=== PATIENT | male | born 1955 | race Caucasian/White ===

== ENCOUNTER 2020-10-31 11:47 | Inpatient (IN) | payer MEDICARE, MEDICAID ==
[~2020-10-31] VITALS: Ht 180.3 cm; Wt 86.6 kg
[2020-10-31] MEDS ORDERED: LORazepam 1 MG TABLET PO PRN (15:30)
[2020-10-31] MEDS ORDERED: HALOPERIDOL 5 MG TABLET PO PRN (15:30)
[2020-10-31] MEDS ORDERED: ZOLPIDEM TARTRATE 10 MG TABLET PO PRN (15:30)
[2020-10-31 17:21] VITALS: BP 146/89
[2020-10-31] MEDS ORDERED: CloNIDine HCL 0.1 MG TABLET PO PRN (17:45)
[2020-10-31] MEDS ORDERED: BENZOCAINE/MENTHOL LOZENGE PO PRN (17:45)
[2020-10-31] MEDS ORDERED: OMEPRAZOLE 20 MG CAPSULE PO PRN (17:45)
[2020-10-31] MEDS ORDERED: MAGNESIUM HYDROXIDE SUSPENSION 30 ML UDCUP PO PRN (17:45)
[2020-10-31] MEDS ORDERED: PETROLATUM,WHITE 28 GM JELLY TP PRN (17:45)
[2020-10-31] MEDS ORDERED: ACETAMINOPHEN 325 MG TABLET PO PRN (17:45)
[2020-10-31] MEDS ORDERED: ALBUTEROL SULFATE HFA 90 MCG/PUFF 8 GM INHALER IH PRN (17:45)
[2020-10-31] MEDS ORDERED: DOCUSATE SODIUM 100 MG CAPSULE PO PRN (17:45)
[2020-10-31] MEDS ORDERED: IBUPROFEN 600 MG TABLET PO PRN (17:45)
[2020-10-31] MEDS ORDERED: LOPERAMIDE HCL 2 MG CAPSULE PO PRN (17:45)
[2020-10-31] MEDS ORDERED: MAG HYDROX/AL HYDROX/SIMETH ES 30 ML SUSPENSION UDCUP PO PRN (17:45)
[2020-10-31] MEDS ORDERED: PNEUMOCOCCAL VACCINE POLYVALENT 0.5 ML VIAL [PPSV23] IM ONE (17:45)
[2020-10-31] MEDS ORDERED: INFLUENZA VIRUS VACCINE QVS 2020-21 (6MO+)/PF 60 MCG/0.5 ML SYRINGE IM ONE (17:45)
[2020-10-31] MEDS ORDERED: BACITRACIN 28 GM OINTMENT TP PRN (17:45)
[2020-10-31] MEDS ORDERED: ONDANSETRON HCL 4 MG TABLET PO PRN (17:45)
[2020-11-01 00:10] VITALS: BP 123/63
[2020-11-01] MEDS ORDERED: LISINOPRIL 20 MG TABLET PO SCH (09:00)
[2020-11-01] MEDS ORDERED: NICOTINE 21 MG/24 HOUR PATCH TD SCH (09:00)
== END 2020-11-01 00:15 | disposition admitted as inpatient to this hospital (09) | DRG 885 ==
LOC: B2X 15:30
PROVIDERS: ADMIT Psychiatry & Neurology Psychiatry; ATTEND Psychiatry & Neurology Psychiatry
DX: F20.0 Paranoid schizophrenia (principal); Z20.822 Contact with and (suspected) exposure to COVID-19
CPT/HCPCS: 87081; Z7610

== ENCOUNTER 2020-12-17 11:22 | Inpatient (IN) | payer MEDICARE, MEDICAID ==
[~2020-12-17] VITALS: Ht 180.3 cm; Wt 90.7 kg
[~2020-12-17 11:22] MED LIST: CITA-144 PO; QUET200T PO; QUET300T2 PO
[2020-12-17] MEDS ORDERED: MAGNESIUM HYDROXIDE SUSPENSION 30 ML UDCUP PO PRN (11:30)
[2020-12-17] MEDS ORDERED: GuaiFENesin/D-METHORPHAN [SUGAR-FREE] 200-20MG/10 ML SYRUP UDCUP PO PRN (11:30)
[2020-12-17] MEDS ORDERED: ZOLPIDEM TARTRATE 10 MG TABLET PO PRN (11:30)
[2020-12-17] MEDS ORDERED: MAG HYDROX/AL HYDROX/SIMETH ES 30 ML SUSPENSION UDCUP PO PRN (11:30)
[2020-12-17] MEDS ORDERED: TUBERCULIN, PURIFIED PROTEIN DERIVATIVE 5 TU/0.1 ML SYRINGE ID ONE (11:30)
[2020-12-17] MEDS ORDERED: LOPERAMIDE HCL 2 MG CAPSULE PO PRN (11:30)
[2020-12-17] MEDS ORDERED: PROMETHAZINE HCL 25 MG TABLET PO PRN (11:30)
[2020-12-17] MEDS ORDERED: HydrOXYzine PAMOATE 50 MG CAPSULE PO PRN (11:30)
[2020-12-17 14:48] VITALS: BP 151/91
[2020-12-17 16:20] VITALS: BP 127/76
[2020-12-17] MEDS: THIAMINE 100 MG TABLET PO SCH (16:54)
[2020-12-17] MEDS: MELATONIN 5 MG TABLET PO SCH (20:27)
[2020-12-17] MEDS ORDERED: QUEtiapine FUMARATE 300 MG TABLET PO SCH (21:00)
[2020-12-18 06:51] VITALS: BP 131/89
[2020-12-18 08:10] LABS: BASOPHILS % (AUTO) 1.3 % (0.0-2.0); EOSINOPHILS % (AUTO) 4.4 % (1.0-6.0); HEMATOCRIT 41.2 % (41-53); HEMOGLOBIN 13.8 g/dL (13.5-17.5); LYMPHOCYTES # (AUTO) 1.4 K/uL (1.0-4.8); LYMPHOCYTES % (AUTO) 20.4 % (22.0-44.0); MEAN CORPUSCULAR HEMOGLOBIN 31.5 pg (26.0-34.0); MEAN CORPUSCULAR HGB CONC 33.5 G/dL (31.0-37.0); MEAN CORPUSCULAR VOLUME 94 fL (80-100); MONOCYTES # (AUTO) 0.6 K/uL (0.1-1.0); MONOCYTES % (AUTO) 9.1 % (2.0-9.0); NEUTROPHILS # (AUTO) 4.6 K/uL (1.8-7.7); NEUTROPHILS % (AUTO) 64.8 % (40.0-70.0); PLATELET COUNT (AUTO) 236 K/uL (150-450); RED BLOOD CELL COUNT(AUTO) 4.37 MIL/uL (4.50-5.90); RED CELL DISTRIBUTION WIDTH 16.1 % (11.5-14.5)
[2020-12-18 08:12] VITALS: BP 113/67
[2020-12-18 08:38] LABS: HEMOGLOBIN A1C 4.9 % (3.8-5.6)
[2020-12-18 08:46] LABS: ALANINE AMINOTRANSFERASE 20 U/L (12-78); ALBUMIN 3.4 g/dL (3.4-5.0); ALKALINE PHOSPHATASE 87 U/L (46-116); ANION GAP 8 mmol/L (8-16); ASPARTATE AMINOTRANSFERASE 12 U/L (15-37); BILIRUBIN,TOTAL 0.4 mg/dL (0.1-1.0); CALCIUM, TOTAL 9.3 mg/dL (8.8-10.5); CARBON DIOXIDE 28 mmol/L (22-29); CHLORIDE 106 mmol/L (98-107); CHOL/HDL RATIO 2.7 (4.2-7.3); CHOLESTEROL 149 mg/dL (131-200); CREATININE 1.07 mg/dL (0.60-1.30); FREE T4 (FREE THYROXINE) 1.04 ng/dL (0.76-1.46); GLOMERULAR FILTR. RATE CALC > 60 mL/min (>60); GLUCOSE,RANDOM 78 mg/dL (70-110); HDL CHOLESTEROL 56 mg/dL (40-60); LDL CHOL (CALC.) 77 mg/dL (0-130); POTASSIUM 4.3 mmol/L (3.5-5.1); SODIUM SERUM 142 mmol/L (136-145); THYROID STIMULATING HORMONE 1.49 uIU/mL (0.36-3.74); TOTAL PROTEIN, SERUM 6.9 g/dL (6.4-8.2); TRIGLYCERIDES 82 mg/dL (15-150); UREA NITROGEN, BLOOD 14 mg/dL (7-18)
[2020-12-18] MEDS: OMEGA-3/DHA/EPA/FISH OIL 1,000 MG CAPSULE PO SCH (08:57)
[2020-12-18] MEDS: MULTIVITAMINS WITH MINERALS, THERAPEUTIC TABLET PO SCH (08:57)
[2020-12-18] MEDS: THIAMINE 100 MG TABLET PO SCH ×2 (08:57→16:56)
[2020-12-18] MEDS: FOLIC ACID 1 MG TABLET PO SCH (08:57)
[2020-12-18] MEDS: QUEtiapine FUMARATE 200 MG TABLET PO SCH (08:58)
[2020-12-18] MEDS: NALTREXONE HCL 50 MG TABLET PO SCH (08:58)
[2020-12-18] MEDS ORDERED: CITALOPRAM HYDROBROMIDE 20 MG TABLET PO SCH (09:00)
[2020-12-18 16:24] VITALS: BP 106/66
[2020-12-18] MEDS ORDERED: QUEtiapine FUMARATE 200 MG TABLET PO SCH (21:00)
[2020-12-18] MEDS: MELATONIN 5 MG TABLET PO SCH (21:20)
[2020-12-18 21:33] VITALS: BP 106/66
[2020-12-18 21:36] VITALS: BP 106/66
[2020-12-19 06:15] VITALS: BP 103/60
[2020-12-19 08:24] VITALS: BP 104/62
[2020-12-19] MEDS ORDERED: DULoxetine HCL 20 MG CAPSULE PO SCH (09:00)
[2020-12-19] MEDS: QUEtiapine FUMARATE 100 MG TABLET PO PRN (09:07)
[2020-12-19] MEDS: NALTREXONE HCL 50 MG TABLET PO SCH (09:07)
[2020-12-19] MEDS: THIAMINE 100 MG TABLET PO SCH ×3 (09:07→16:39)
[2020-12-19] MEDS: MULTIVITAMINS WITH MINERALS, THERAPEUTIC TABLET PO SCH (09:07)
[2020-12-19] MEDS: OMEGA-3/DHA/EPA/FISH OIL 1,000 MG CAPSULE PO SCH (09:07)
[2020-12-19] MEDS: FOLIC ACID 1 MG TABLET PO SCH (09:07)
[2020-12-19] MEDS: QUEtiapine FUMARATE 200 MG TABLET PO SCH (09:11)
[2020-12-19 09:17] LABS: APPEARANCE,URINE CLEAR (CLEAR); BILIRUBIN,URINE NEGATIVE (NEGATIVE); GLUCOSE, URINE (UA) NEGATIVE (NEGATIVE); KETONES,URINE NEGATIVE (NEGATIVE); LEUKOCYTE ESTERASE ,URINE NEGATIVE (NEGATIVE); NITRATE,URINE NEGATIVE (NEGATIVE); OCCULT BLOOD,URINE NEGATIVE (NEGATIVE); PROTEIN,URINE NEGATIVE (NEGATIVE); UROBILINOGEN,URINE 0.2 mg/dL (<=1.0)
[2020-12-19 09:21] LABS: AMPHET/METH SCREEN,URINE NEGATIVE (NEGATIVE); BARBITURATE SCREEN, URINE NEGATIVE (NEGATIVE); BENZODIAZEPINES SCREEN,URINE NEGATIVE (NEGATIVE); CANNABINOID SCREEN,URINE NEGATIVE (NEGATIVE); COCAINE SCREEN,URINE NEGATIVE (NEGATIVE); METHADONE SCREEN, URINE NEGATIVE (NEGATIVE); OPIATE SCREEN,URINE NEGATIVE (NEGATIVE)
[2020-12-19 09:31] LABS: PHENCYCLIDINE SCREEN,URINE NEGATIVE (NEGATIVE)
[2020-12-19] MEDS: LORazepam 2 MG TABLET PO PRN (13:38)
[2020-12-19 16:12] VITALS: BP 117/69
[2020-12-19] MEDS: MELATONIN 5 MG TABLET PO SCH (20:13)
[2020-12-19] MEDS: QUEtiapine FUMARATE 300 MG TABLET PO SCH (20:14)
[2020-12-20 06:18] VITALS: BP 104/60
[2020-12-20] MEDS: THIAMINE 100 MG TABLET PO SCH ×2 (08:26→16:30)
[2020-12-20] MEDS: QUEtiapine FUMARATE 200 MG TABLET PO SCH (08:26)
[2020-12-20] MEDS: MULTIVITAMINS WITH MINERALS, THERAPEUTIC TABLET PO SCH (08:26)
[2020-12-20] MEDS: NALTREXONE HCL 50 MG TABLET PO SCH (08:26)
[2020-12-20] MEDS: OMEGA-3/DHA/EPA/FISH OIL 1,000 MG CAPSULE PO SCH (08:26)
[2020-12-20] MEDS: FOLIC ACID 1 MG TABLET PO SCH (08:26)
[2020-12-20] MEDS: DULoxetine HCL 30 MG CAPSULE PO SCH (08:27)
[2020-12-20 08:54] VITALS: BP 117/78
[2020-12-20] MEDS: LORazepam 2 MG TABLET PO PRN (13:08)
[2020-12-20 16:20] VITALS: BP 100/67
[2020-12-20] MEDS: QUEtiapine FUMARATE 300 MG TABLET PO SCH (20:34)
[2020-12-20] MEDS: MELATONIN 5 MG TABLET PO SCH (20:34)
[2020-12-21 06:24] VITALS: BP 129/79
[2020-12-21 08:12] VITALS: BP 102/60
[2020-12-21 08:17] LABS: BASOPHILS % (AUTO) 1.3 % (0.0-2.0); EOSINOPHILS % (AUTO) 4.2 % (1.0-6.0); HEMATOCRIT 43.9 % (41-53); HEMOGLOBIN 14.6 g/dL (13.5-17.5); LYMPHOCYTES # (AUTO) 1.7 K/uL (1.0-4.8); LYMPHOCYTES % (AUTO) 21.3 % (22.0-44.0); MEAN CORPUSCULAR HEMOGLOBIN 31.7 pg (26.0-34.0); MEAN CORPUSCULAR HGB CONC 33.2 G/dL (31.0-37.0); MEAN CORPUSCULAR VOLUME 96 fL (80-100); MONOCYTES # (AUTO) 0.8 K/uL (0.1-1.0); NEUTROPHILS % (AUTO) 63.2 % (40.0-70.0); PLATELET COUNT (AUTO) 246 K/uL (150-450); RED CELL DISTRIBUTION WIDTH 16.5 % (11.5-14.5)
[2020-12-21] MEDS: QUEtiapine FUMARATE 100 MG TABLET PO PRN (08:44)
[2020-12-21] MEDS: MULTIVITAMINS WITH MINERALS, THERAPEUTIC TABLET PO SCH (08:44)
[2020-12-21] MEDS: THIAMINE 100 MG TABLET PO SCH ×2 (08:44→18:08)
[2020-12-21] MEDS: FOLIC ACID 1 MG TABLET PO SCH (08:44)
[2020-12-21] MEDS: OMEGA-3/DHA/EPA/FISH OIL 1,000 MG CAPSULE PO SCH (08:44)
[2020-12-21] MEDS: DULoxetine HCL 30 MG CAPSULE PO SCH (08:44)
[2020-12-21] MEDS: NALTREXONE HCL 50 MG TABLET PO SCH (08:45)
[2020-12-21] MEDS: QUEtiapine FUMARATE 200 MG TABLET PO SCH (08:53)
[2020-12-21] MEDS ORDERED: CloZAPine 25 MG TABLET PO SCH (09:00)
[2020-12-21] MEDS: LORazepam 2 MG TABLET PO PRN (14:37)
[2020-12-21 16:18] VITALS: BP 128/74
[2020-12-21] MEDS: QUEtiapine FUMARATE 300 MG TABLET PO SCH (20:39)
[2020-12-21] MEDS: MELATONIN 5 MG TABLET PO SCH (20:39)
[2020-12-22 06:15] VITALS: BP 103/60
[2020-12-22 07:46] LABS: COVID AG,FIA SOURCE NASOPHARYNGEAL
[2020-12-22 08:34] VITALS: BP 103/52
[2020-12-22] MEDS ORDERED: CloZAPine 25 MG TABLET PO SCH ×2 (09:00→21:00)
[2020-12-22] MEDS: FOLIC ACID 1 MG TABLET PO SCH (09:28)
[2020-12-22] MEDS: THIAMINE 100 MG TABLET PO SCH ×2 (09:28→17:01)
[2020-12-22] MEDS: OMEGA-3/DHA/EPA/FISH OIL 1,000 MG CAPSULE PO SCH (09:28)
[2020-12-22] MEDS: MULTIVITAMINS WITH MINERALS, THERAPEUTIC TABLET PO SCH (09:28)
[2020-12-22] MEDS: DULoxetine HCL 30 MG CAPSULE PO SCH (09:28)
[2020-12-22] MEDS: QUEtiapine FUMARATE 200 MG TABLET PO SCH (09:28)
[2020-12-22] MEDS: NALTREXONE HCL 50 MG TABLET PO SCH (09:29)
[2020-12-22 16:09] VITALS: BP 111/68
[2020-12-22] MEDS: LORazepam 2 MG TABLET PO PRN (17:01)
[2020-12-22] MEDS: QUEtiapine FUMARATE 300 MG TABLET PO SCH (20:44)
[2020-12-22] MEDS: MELATONIN 5 MG TABLET PO SCH (20:45)
[2020-12-23 00:15] VITALS: BP 127/75
[2020-12-23 08:18] VITALS: BP 105/62
[2020-12-23] MEDS: QUEtiapine FUMARATE 200 MG TABLET PO SCH (08:40)
[2020-12-23] MEDS: FOLIC ACID 1 MG TABLET PO SCH (08:40)
[2020-12-23] MEDS: DULoxetine HCL 30 MG CAPSULE PO SCH (08:41)
[2020-12-23] MEDS: OMEGA-3/DHA/EPA/FISH OIL 1,000 MG CAPSULE PO SCH (08:41)
[2020-12-23] MEDS: THIAMINE 100 MG TABLET PO SCH ×2 (08:41→16:33)
[2020-12-23] MEDS: NALTREXONE HCL 50 MG TABLET PO SCH (08:41)
[2020-12-23] MEDS: MULTIVITAMINS WITH MINERALS, THERAPEUTIC TABLET PO SCH (08:41)
[2020-12-23] MEDS ORDERED: CloZAPine 25 MG TABLET PO SCH ×2 (09:00→21:00)
[2020-12-23 09:43] VITALS: BP 105/62
[2020-12-23 12:49] VITALS: BP 105/62
[2020-12-23 16:13] VITALS: BP 110/73
[2020-12-23] MEDS: MELATONIN 5 MG TABLET PO SCH (20:40)
[2020-12-23] MEDS: QUEtiapine FUMARATE 300 MG TABLET PO SCH (20:41)
[2020-12-24 00:21] VITALS: BP 103/62
[2020-12-24 08:30] VITALS: BP 120/67
[2020-12-24] MEDS: MULTIVITAMINS WITH MINERALS, THERAPEUTIC TABLET PO SCH (08:51)
[2020-12-24] MEDS: THIAMINE 100 MG TABLET PO SCH ×2 (08:51→16:29)
[2020-12-24] MEDS: LORazepam 2 MG TABLET PO PRN (08:52)
[2020-12-24] MEDS: DULoxetine HCL 30 MG CAPSULE PO SCH (08:52)
[2020-12-24] MEDS: QUEtiapine FUMARATE 200 MG TABLET PO SCH (08:52)
[2020-12-24] MEDS: CloZAPine 25 MG TABLET PO SCH ×2 (08:52→20:21)
[2020-12-24] MEDS: FOLIC ACID 1 MG TABLET PO SCH (08:52)
[2020-12-24] MEDS: OMEGA-3/DHA/EPA/FISH OIL 1,000 MG CAPSULE PO SCH (08:52)
[2020-12-24] MEDS: NALTREXONE HCL 50 MG TABLET PO SCH (10:26)
[2020-12-24 16:12] VITALS: BP 142/90
[2020-12-24] MEDS: NICOTINE 21 MG/24 HOUR PATCH TD SCH (16:29)
[2020-12-24] MEDS: QUEtiapine FUMARATE 100 MG TABLET PO PRN (18:02)
[2020-12-24] MEDS: MELATONIN 5 MG TABLET PO SCH (20:21)
[2020-12-24] MEDS: QUEtiapine FUMARATE 300 MG TABLET PO SCH (20:22)
[2020-12-25 00:07] VITALS: BP 107/61
[2020-12-25 08:13] VITALS: BP 112/66
[2020-12-25] MEDS: CloZAPine 25 MG TABLET PO SCH ×2 (08:37→21:30)
[2020-12-25] MEDS: QUEtiapine FUMARATE 200 MG TABLET PO SCH (08:38)
[2020-12-25] MEDS: THIAMINE 100 MG TABLET PO SCH ×2 (08:38→16:50)
[2020-12-25] MEDS: OMEGA-3/DHA/EPA/FISH OIL 1,000 MG CAPSULE PO SCH (08:38)
[2020-12-25] MEDS: FOLIC ACID 1 MG TABLET PO SCH (08:38)
[2020-12-25] MEDS: NALTREXONE HCL 50 MG TABLET PO SCH (08:38)
[2020-12-25] MEDS: MULTIVITAMINS WITH MINERALS, THERAPEUTIC TABLET PO SCH (08:38)
[2020-12-25] MEDS: DULoxetine HCL 30 MG CAPSULE PO SCH (08:38)
[2020-12-25] MEDS: NICOTINE 21 MG/24 HOUR PATCH TD SCH (08:39)
[2020-12-25] MEDS: LORazepam 2 MG TABLET PO PRN (13:08)
[2020-12-25] MEDS: QUEtiapine FUMARATE 100 MG TABLET PO PRN (15:46)
[2020-12-25 16:05] VITALS: BP 131/78
[2020-12-25] MEDS ORDERED: TRIAMCINOLONE 0.025% 15 GM OINTMENT TP SCH (17:00)
[2020-12-25] MEDS: QUEtiapine FUMARATE 300 MG TABLET PO SCH (21:29)
[2020-12-25] MEDS: MELATONIN 5 MG TABLET PO SCH (21:30)
[2020-12-26 01:02] VITALS: BP 106/56
[2020-12-26 08:12] VITALS: BP 119/67
[2020-12-26] MEDS: FOLIC ACID 1 MG TABLET PO SCH (08:47)
[2020-12-26] MEDS: THIAMINE 100 MG TABLET PO SCH ×2 (08:47→16:45)
[2020-12-26] MEDS: MULTIVITAMINS WITH MINERALS, THERAPEUTIC TABLET PO SCH (08:47)
[2020-12-26] MEDS: OMEGA-3/DHA/EPA/FISH OIL 1,000 MG CAPSULE PO SCH (08:47)
[2020-12-26] MEDS: NICOTINE 21 MG/24 HOUR PATCH TD SCH (08:48)
[2020-12-26] MEDS ORDERED: CloZAPine 25 MG TABLET PO SCH (09:00)
[2020-12-26] MEDS: TRIAMCINOLONE 0.025% 15 GM OINTMENT TP SCH ×2 (09:13→16:45)
[2020-12-26 16:07] VITALS: BP 140/84
[2020-12-26] MEDS ORDERED: QUEtiapine FUMARATE 100 MG TABLET PO PRN (16:15)
[2020-12-26] MEDS: MELATONIN 5 MG TABLET PO SCH (20:34)
[2020-12-26] MEDS ORDERED: CloZAPine 100 MG TABLET PO SCH (21:00)
[2020-12-27 04:34] VITALS: BP 114/75
[2020-12-27 07:43] LABS: BASOPHILS % (AUTO) 0.7 % (0.0-2.0); EOSINOPHILS % (AUTO) 1.8 % (1.0-6.0); HEMATOCRIT 37.7 % (41-53); HEMOGLOBIN 12.8 g/dL (13.5-17.5); LYMPHOCYTES # (AUTO) 1.3 K/uL (1.0-4.8); LYMPHOCYTES % (AUTO) 13.1 % (22.0-44.0); MEAN CORPUSCULAR HEMOGLOBIN 31.6 pg (26.0-34.0); MEAN CORPUSCULAR VOLUME 93 fL (80-100); MONOCYTES # (AUTO) 1.7 K/uL (0.1-1.0); MONOCYTES % (AUTO) 17.6 % (2.0-9.0); NEUTROPHILS # (AUTO) 6.5 K/uL (1.8-7.7); NEUTROPHILS % (AUTO) 66.8 % (40.0-70.0); PLATELET COUNT (AUTO) 238 K/uL (150-450); RED BLOOD CELL COUNT(AUTO) 4.05 MIL/uL (4.50-5.90); RED CELL DISTRIBUTION WIDTH 16.7 % (11.5-14.5)
[2020-12-27 08:06] VITALS: BP 134/78
[2020-12-27] MEDS: THIAMINE 100 MG TABLET PO SCH (08:35)
[2020-12-27] MEDS: FOLIC ACID 1 MG TABLET PO SCH (08:35)
[2020-12-27] MEDS: MULTIVITAMINS WITH MINERALS, THERAPEUTIC TABLET PO SCH (08:35)
[2020-12-27] MEDS: OMEGA-3/DHA/EPA/FISH OIL 1,000 MG CAPSULE PO SCH (08:35)
[2020-12-27] MEDS: NICOTINE 21 MG/24 HOUR PATCH TD SCH (08:36)
[2020-12-27] MEDS: TRIAMCINOLONE 0.025% 15 GM OINTMENT TP SCH ×2 (08:37→17:05)
[2020-12-27] MEDS ORDERED: CloZAPine 25 MG TABLET PO SCH ×2 (09:00)
[2020-12-27 15:23] VITALS: BP 118/75
[2020-12-27] MEDS: ACETAMINOPHEN 325 MG TABLET PO PRN (15:23)
[2020-12-27 16:15] VITALS: BP 128/76
[2020-12-27] MEDS: MELATONIN 5 MG TABLET PO SCH (20:12)
[2020-12-27] MEDS ORDERED: CloZAPine 100 MG TABLET PO SCH (21:00)
[2020-12-28 04:33] VITALS: BP 126/72
[2020-12-28] MEDS: ACETAMINOPHEN 325 MG TABLET PO PRN (04:53)
[2020-12-28 05:42] VITALS: BP 135/81
[2020-12-28 08:16] VITALS: BP 132/76
[2020-12-28] MEDS: MULTIVITAMINS WITH MINERALS, THERAPEUTIC TABLET PO SCH (08:29)
[2020-12-28] MEDS: NICOTINE 21 MG/24 HOUR PATCH TD SCH (08:29)
[2020-12-28] MEDS: OMEGA-3/DHA/EPA/FISH OIL 1,000 MG CAPSULE PO SCH (08:29)
[2020-12-28] MEDS: TRIAMCINOLONE 0.025% 15 GM OINTMENT TP SCH ×2 (08:53→17:18)
[2020-12-28] MEDS ORDERED: CloZAPine 25 MG TABLET PO SCH ×3 (09:00→21:00)
[2020-12-28] MEDS ORDERED: GENTAMICIN SULFATE 0.3% OPHTHALMIC SOLUTION 5 ML OS SCH (16:00)
[2020-12-28 16:14] VITALS: BP 101/73
[2020-12-28] MEDS: MUPIROCIN CALCIUM 2% 15 GM CREAM TP SCH (17:00)
[2020-12-28] MEDS: DOXYCYCLINE HYCLATE 100 MG TABLET PO SCH (17:17)
[2020-12-28] MEDS: CEPHALEXIN MONOHYDRATE 500 MG CAPSULE PO SCH ×2 (17:17→21:24)
[2020-12-28] MEDS: MELATONIN 5 MG TABLET PO SCH (20:36)
[2020-12-28] MEDS ORDERED: CloZAPine 100 MG TABLET PO SCH (21:00)
[2020-12-29 06:18] VITALS: BP 110/80
[2020-12-29 07:53] LABS: COVID AG,FIA SOURCE NASOPHARYNGEAL
[2020-12-29 08:10] VITALS: BP 108/68
[2020-12-29] MEDS ORDERED: CloZAPine 100 MG TABLET PO SCH (09:00)
[2020-12-29] MEDS ORDERED: CloZAPine 25 MG TABLET PO SCH ×2 (09:00→21:00)
[2020-12-29] MEDS: CEPHALEXIN MONOHYDRATE 500 MG CAPSULE PO SCH ×4 (10:01→20:32)
[2020-12-29] MEDS: OMEGA-3/DHA/EPA/FISH OIL 1,000 MG CAPSULE PO SCH (10:01)
[2020-12-29] MEDS: MULTIVITAMINS WITH MINERALS, THERAPEUTIC TABLET PO SCH (10:01)
[2020-12-29] MEDS: GENTAMICIN SULFATE 0.3% OPHTHALMIC SOLUTION 5 ML OS SCH ×4 (10:01→20:23)
[2020-12-29] MEDS: DOXYCYCLINE HYCLATE 100 MG TABLET PO SCH ×2 (10:02→16:46)
[2020-12-29] MEDS: NICOTINE 21 MG/24 HOUR PATCH TD SCH (10:03)
[2020-12-29] MEDS: MUPIROCIN CALCIUM 2% 15 GM CREAM TP SCH ×2 (10:05→16:45)
[2020-12-29] MEDS: TRIAMCINOLONE 0.025% 15 GM OINTMENT TP SCH ×2 (11:31→16:46)
[2020-12-29 14:19] VITALS: BP 115/65
[2020-12-29] MEDS: ACETAMINOPHEN 325 MG TABLET PO PRN (14:19)
[2020-12-29 16:11] VITALS: BP 112/78
[2020-12-29] MEDS: MELATONIN 5 MG TABLET PO SCH (20:32)
[2020-12-30] MEDS: GENTAMICIN SULFATE 0.3% OPHTHALMIC SOLUTION 5 ML OS SCH ×6 (04:05→20:20)
[2020-12-30 08:19] VITALS: BP 130/86
[2020-12-30] MEDS: OMEGA-3/DHA/EPA/FISH OIL 1,000 MG CAPSULE PO SCH (09:54)
[2020-12-30] MEDS: CloZAPine 25 MG TABLET PO SCH ×2 (09:54→20:38)
[2020-12-30] MEDS: MULTIVITAMINS WITH MINERALS, THERAPEUTIC TABLET PO SCH (09:55)
[2020-12-30] MEDS: DOXYCYCLINE HYCLATE 100 MG TABLET PO SCH ×2 (09:55→16:31)
[2020-12-30] MEDS: NICOTINE 21 MG/24 HOUR PATCH TD SCH (09:55)
[2020-12-30] MEDS: TRIAMCINOLONE 0.025% 15 GM OINTMENT TP SCH ×2 (09:56→16:31)
[2020-12-30] MEDS: MUPIROCIN CALCIUM 2% 15 GM CREAM TP SCH ×2 (09:56→16:31)
[2020-12-30] MEDS: CEPHALEXIN MONOHYDRATE 500 MG CAPSULE PO SCH ×4 (09:57→20:39)
[2020-12-30] MEDS: ACETAMINOPHEN 325 MG TABLET PO PRN (14:47)
[2020-12-30 14:48] VITALS: BP 137/84
[2020-12-30 16:04] VITALS: BP 123/86
[2020-12-30] MEDS: MELATONIN 5 MG TABLET PO SCH (20:38)
[2020-12-31] MEDS: GENTAMICIN SULFATE 0.3% OPHTHALMIC SOLUTION 5 ML OS SCH ×6 (00:02→20:10)
[2020-12-31 05:45] VITALS: BP 121/79
[2020-12-31 08:24] VITALS: BP 105/60
[2020-12-31] MEDS ORDERED: CloZAPine 25 MG TABLET PO SCH (09:00)
[2020-12-31 10:34] LABS: % IRON SATURATION 45.8 % (30-44)
[2020-12-31] MEDS: DOXYCYCLINE HYCLATE 100 MG TABLET PO SCH ×2 (10:34→17:08)
[2020-12-31] MEDS: OMEGA-3/DHA/EPA/FISH OIL 1,000 MG CAPSULE PO SCH (10:34)
[2020-12-31] MEDS: MULTIVITAMINS WITH MINERALS, THERAPEUTIC TABLET PO SCH (10:34)
[2020-12-31] MEDS: CEPHALEXIN MONOHYDRATE 500 MG CAPSULE PO SCH ×4 (10:34→20:36)
[2020-12-31] MEDS: CloZAPine 25 MG TABLET PO SCH ×2 (10:34→20:36)
[2020-12-31] MEDS: MUPIROCIN CALCIUM 2% 15 GM CREAM TP SCH ×2 (10:35→17:09)
[2020-12-31] MEDS: TRIAMCINOLONE 0.025% 15 GM OINTMENT TP SCH ×2 (10:36→17:09)
[2020-12-31] MEDS: NICOTINE 21 MG/24 HOUR PATCH TD SCH (10:36)
[2020-12-31 16:08] VITALS: BP 106/64
[2020-12-31] MEDS: COLLOIDAL OATMEAL PACKET TP SCH (18:25)
[2020-12-31] MEDS: MELATONIN 5 MG TABLET PO SCH (20:36)
[2020-12-31] MEDS ORDERED: CloZAPine 100 MG TABLET PO SCH (21:00)
[2021-01-01] MEDS: GENTAMICIN SULFATE 0.3% OPHTHALMIC SOLUTION 5 ML OS SCH ×6 (00:24→20:20)
[2021-01-01 06:17] VITALS: BP 110/68
[2021-01-01 08:09] VITALS: BP 140/70
[2021-01-01] MEDS: OMEGA-3/DHA/EPA/FISH OIL 1,000 MG CAPSULE PO SCH (08:43)
[2021-01-01] MEDS: CEPHALEXIN MONOHYDRATE 500 MG CAPSULE PO SCH ×4 (08:44→20:34)
[2021-01-01] MEDS: DOXYCYCLINE HYCLATE 100 MG TABLET PO SCH ×2 (08:44→16:30)
[2021-01-01] MEDS: NICOTINE 21 MG/24 HOUR PATCH TD SCH (08:44)
[2021-01-01] MEDS: TRIAMCINOLONE 0.025% 15 GM OINTMENT TP SCH ×2 (08:45→16:31)
[2021-01-01] MEDS: MUPIROCIN CALCIUM 2% 15 GM CREAM TP SCH ×2 (08:45→16:31)
[2021-01-01] MEDS: MULTIVITAMINS WITH MINERALS, THERAPEUTIC TABLET PO SCH (08:46)
[2021-01-01] MEDS ORDERED: CloZAPine 25 MG TABLET PO SCH ×2 (09:00)
[2021-01-01] MEDS: ACETAMINOPHEN 325 MG TABLET PO PRN (14:02)
[2021-01-01 16:11] VITALS: BP 103/61
[2021-01-01] MEDS: MELATONIN 5 MG TABLET PO SCH (20:34)
[2021-01-01] MEDS ORDERED: CloZAPine 100 MG TABLET PO SCH ×2 (21:00)
[2021-01-02] MEDS: GENTAMICIN SULFATE 0.3% OPHTHALMIC SOLUTION 5 ML OS SCH ×6 (04:00→20:45)
[2021-01-02 05:48] VITALS: BP 128/74
[2021-01-02 08:21] VITALS: BP 127/79
[2021-01-02] MEDS: MULTIVITAMINS WITH MINERALS, THERAPEUTIC TABLET PO SCH (08:58)
[2021-01-02] MEDS: CEPHALEXIN MONOHYDRATE 500 MG CAPSULE PO SCH ×4 (08:59→20:44)
[2021-01-02] MEDS: OMEGA-3/DHA/EPA/FISH OIL 1,000 MG CAPSULE PO SCH (08:59)
[2021-01-02] MEDS: NICOTINE 21 MG/24 HOUR PATCH TD SCH (08:59)
[2021-01-02] MEDS: DOXYCYCLINE HYCLATE 100 MG TABLET PO SCH ×2 (08:59→16:28)
[2021-01-02] MEDS ORDERED: CloZAPine 25 MG TABLET PO SCH (09:00)
[2021-01-02] MEDS: TRIAMCINOLONE 0.025% 15 GM OINTMENT TP SCH ×2 (09:00→16:29)
[2021-01-02] MEDS ORDERED: CloZAPine 100 MG TABLET PO SCH ×3 (09:00→21:00)
[2021-01-02] MEDS: MUPIROCIN CALCIUM 2% 15 GM CREAM TP SCH ×2 (09:00→16:28)
[2021-01-02 16:07] VITALS: BP 124/74
[2021-01-02] MEDS: MELATONIN 5 MG TABLET PO SCH (20:44)
[2021-01-03 00:33] VITALS: BP 107/62
[2021-01-03] MEDS: GENTAMICIN SULFATE 0.3% OPHTHALMIC SOLUTION 5 ML OS SCH ×2 (04:00)
[2021-01-03 08:20] LABS: BASOPHILS % (AUTO) 1.1 % (0.0-2.0); EOSINOPHILS % (AUTO) 4.9 % (1.0-6.0); HEMATOCRIT 42.1 % (41-53); HEMOGLOBIN 14.1 g/dL (13.5-17.5); LYMPHOCYTES # (AUTO) 1.3 K/uL (1.0-4.8); LYMPHOCYTES % (AUTO) 12.7 % (22.0-44.0); MEAN CORPUSCULAR HEMOGLOBIN 31.6 pg (26.0-34.0); MEAN CORPUSCULAR HGB CONC 33.5 G/dL (31.0-37.0); MEAN CORPUSCULAR VOLUME 94 fL (80-100); MONOCYTES # (AUTO) 0.8 K/uL (0.1-1.0); MONOCYTES % (AUTO) 7.8 % (2.0-9.0); NEUTROPHILS # (AUTO) 7.4 K/uL (1.8-7.7); NEUTROPHILS % (AUTO) 73.5 % (40.0-70.0); PLATELET COUNT (AUTO) 459 K/uL (150-450); RED BLOOD CELL COUNT(AUTO) 4.46 MIL/uL (4.50-5.90); RED CELL DISTRIBUTION WIDTH 16.3 % (11.5-14.5)
[2021-01-03] MEDS: OMEGA-3/DHA/EPA/FISH OIL 1,000 MG CAPSULE PO SCH (08:29)
[2021-01-03] MEDS: MULTIVITAMINS WITH MINERALS, THERAPEUTIC TABLET PO SCH (08:29)
[2021-01-03] MEDS: DOXYCYCLINE HYCLATE 100 MG TABLET PO SCH ×2 (08:30→16:30)
[2021-01-03] MEDS: CEPHALEXIN MONOHYDRATE 500 MG CAPSULE PO SCH ×4 (08:30→20:42)
[2021-01-03] MEDS: NICOTINE 21 MG/24 HOUR PATCH TD SCH (08:31)
[2021-01-03] MEDS: COLLOIDAL OATMEAL PACKET TP SCH (08:31)
[2021-01-03] MEDS: TRIAMCINOLONE 0.025% 15 GM OINTMENT TP SCH ×2 (08:32→18:40)
[2021-01-03] MEDS: MUPIROCIN CALCIUM 2% 15 GM CREAM TP SCH ×2 (08:32→18:39)
[2021-01-03 08:43] VITALS: BP 131/88
[2021-01-03] MEDS ORDERED: CloZAPine 25 MG TABLET PO SCH (09:00)
[2021-01-03 16:02] VITALS: BP 125/75
[2021-01-03] MEDS: ACETAMINOPHEN 325 MG TABLET PO PRN (16:05)
[2021-01-03] MEDS: MELATONIN 5 MG TABLET PO SCH (20:42)
[2021-01-03] MEDS ORDERED: CloZAPine 100 MG TABLET PO SCH (21:00)
[2021-01-04 00:10] VITALS: BP 111/75
[2021-01-04 01:55] VITALS: BP 133/81
[2021-01-04] MEDS: ACETAMINOPHEN 325 MG TABLET PO PRN ×3 (01:59→11:00)
[2021-01-04 06:56] VITALS: BP 138/89
[2021-01-04 08:18] VITALS: BP 111/60
[2021-01-04] MEDS: CEPHALEXIN MONOHYDRATE 500 MG CAPSULE PO SCH ×2 (08:31→13:27)
[2021-01-04] MEDS: CloZAPine 100 MG TABLET PO SCH ×2 (08:31→20:45)
[2021-01-04] MEDS: MULTIVITAMINS WITH MINERALS, THERAPEUTIC TABLET PO SCH (08:31)
[2021-01-04] MEDS: OMEGA-3/DHA/EPA/FISH OIL 1,000 MG CAPSULE PO SCH (08:31)
[2021-01-04] MEDS: DOXYCYCLINE HYCLATE 100 MG TABLET PO SCH (08:32)
[2021-01-04] MEDS: NICOTINE 21 MG/24 HOUR PATCH TD SCH (08:33)
[2021-01-04] MEDS: MUPIROCIN CALCIUM 2% 15 GM CREAM TP SCH ×2 (08:33→17:22)
[2021-01-04] MEDS: TRIAMCINOLONE 0.025% 15 GM OINTMENT TP SCH ×2 (08:34→17:22)
[2021-01-04 16:09] VITALS: BP 106/63
[2021-01-04] MEDS: MELATONIN 5 MG TABLET PO SCH (20:45)
[2021-01-05 05:31] VITALS: BP 110/68
[2021-01-05 08:05] LABS: COVID AG,FIA SOURCE NASOPHARYNGEAL
[2021-01-05] MEDS: NICOTINE 21 MG/24 HOUR PATCH TD SCH (08:53)
[2021-01-05] MEDS: CloZAPine 100 MG TABLET PO SCH ×2 (08:54→20:31)
[2021-01-05] MEDS: OMEGA-3/DHA/EPA/FISH OIL 1,000 MG CAPSULE PO SCH (08:54)
[2021-01-05] MEDS: MULTIVITAMINS WITH MINERALS, THERAPEUTIC TABLET PO SCH (08:54)
[2021-01-05] MEDS: ACETAMINOPHEN 325 MG TABLET PO PRN (08:54)
[2021-01-05] MEDS: MUPIROCIN CALCIUM 2% 15 GM CREAM TP SCH ×2 (08:55→16:32)
[2021-01-05] MEDS: TRIAMCINOLONE 0.025% 15 GM OINTMENT TP SCH ×2 (08:55→16:32)
[2021-01-05 08:58] VITALS: BP 113/60
[2021-01-05 16:16] VITALS: BP 104/64
[2021-01-05] MEDS: MELATONIN 5 MG TABLET PO SCH (20:32)
[2021-01-06 00:11] VITALS: BP 105/60
[2021-01-06] MEDS: OMEGA-3/DHA/EPA/FISH OIL 1,000 MG CAPSULE PO SCH (08:21)
[2021-01-06 08:22] VITALS: BP 110/60
[2021-01-06] MEDS: MULTIVITAMINS WITH MINERALS, THERAPEUTIC TABLET PO SCH (08:22)
[2021-01-06] MEDS: NICOTINE 21 MG/24 HOUR PATCH TD SCH (08:22)
[2021-01-06] MEDS: MUPIROCIN CALCIUM 2% 15 GM CREAM TP SCH ×2 (08:23→17:22)
[2021-01-06] MEDS: TRIAMCINOLONE 0.025% 15 GM OINTMENT TP SCH ×2 (08:23→17:21)
[2021-01-06] MEDS ORDERED: CloZAPine 25 MG TABLET PO SCH (09:00)
[2021-01-06 13:15] VITALS: BP 118/64
[2021-01-06] MEDS: ACETAMINOPHEN 325 MG TABLET PO PRN (13:15)
[2021-01-06 16:12] VITALS: BP 134/72
[2021-01-06] MEDS: MELATONIN 5 MG TABLET PO SCH (20:20)
[2021-01-06] MEDS ORDERED: CloZAPine 100 MG TABLET PO SCH (21:00)
[2021-01-07 00:10] VITALS: BP 108/60
[2021-01-07 08:13] VITALS: BP 103/63
[2021-01-07] MEDS ORDERED: CloZAPine 25 MG TABLET PO SCH (09:00)
[2021-01-07] MEDS: MULTIVITAMINS WITH MINERALS, THERAPEUTIC TABLET PO SCH (10:21)
[2021-01-07] MEDS: OMEGA-3/DHA/EPA/FISH OIL 1,000 MG CAPSULE PO SCH (10:21)
[2021-01-07] MEDS: COLLOIDAL OATMEAL PACKET TP SCH (10:22)
[2021-01-07] MEDS: NICOTINE 21 MG/24 HOUR PATCH TD SCH (10:22)
[2021-01-07] MEDS: TRIAMCINOLONE 0.025% 15 GM OINTMENT TP SCH ×2 (10:23→17:04)
[2021-01-07] MEDS: MUPIROCIN CALCIUM 2% 15 GM CREAM TP SCH ×2 (10:23→17:03)
[2021-01-07] MEDS: ACETAMINOPHEN 325 MG TABLET PO PRN (11:53)
[2021-01-07 16:09] VITALS: BP 106/67
[2021-01-07] MEDS: MELATONIN 5 MG TABLET PO SCH (20:35)
[2021-01-07] MEDS ORDERED: CloZAPine 100 MG TABLET PO SCH (21:00)
[2021-01-08 04:00] VITALS: BP 106/61
[2021-01-08 07:02] VITALS: BP 110/72
[2021-01-08] MEDS: ACETAMINOPHEN 325 MG TABLET PO PRN ×3 (07:04→16:51)
[2021-01-08 08:17] VITALS: BP 104/74
[2021-01-08] MEDS: MULTIVITAMINS WITH MINERALS, THERAPEUTIC TABLET PO SCH (08:40)
[2021-01-08] MEDS: OMEGA-3/DHA/EPA/FISH OIL 1,000 MG CAPSULE PO SCH (08:40)
[2021-01-08] MEDS: CloZAPine 100 MG TABLET PO SCH ×2 (08:40→20:13)
[2021-01-08] MEDS: NICOTINE 21 MG/24 HOUR PATCH TD SCH (08:40)
[2021-01-08] MEDS: MUPIROCIN CALCIUM 2% 15 GM CREAM TP SCH ×2 (08:41→16:50)
[2021-01-08] MEDS: TRIAMCINOLONE 0.025% 15 GM OINTMENT TP SCH ×2 (08:41→16:50)
[2021-01-08 16:27] VITALS: BP 100/58
[2021-01-08] MEDS: MELATONIN 5 MG TABLET PO SCH (20:12)
[2021-01-09 01:22] VITALS: BP 106/62
[2021-01-09 08:11] VITALS: BP 136/96
[2021-01-09] MEDS: CloZAPine 100 MG TABLET PO SCH ×2 (08:36→20:34)
[2021-01-09] MEDS: MULTIVITAMINS WITH MINERALS, THERAPEUTIC TABLET PO SCH (08:36)
[2021-01-09] MEDS: FLUoxetine HCL 20 MG CAPSULE PO SCH (08:36)
[2021-01-09] MEDS: OMEGA-3/DHA/EPA/FISH OIL 1,000 MG CAPSULE PO SCH (08:36)
[2021-01-09] MEDS: NICOTINE 21 MG/24 HOUR PATCH TD SCH (08:37)
[2021-01-09] MEDS: ACETAMINOPHEN 325 MG TABLET PO PRN ×2 (08:38→14:27)
[2021-01-09] MEDS: TRIAMCINOLONE 0.025% 15 GM OINTMENT TP SCH ×2 (08:39→16:51)
[2021-01-09] MEDS: MUPIROCIN CALCIUM 2% 15 GM CREAM TP SCH ×2 (08:39→16:51)
[2021-01-09] MEDS: GABAPENTIN 300 MG CAPSULE PO PRN (11:41)
[2021-01-09 14:27] VITALS: BP 128/88
[2021-01-09 16:08] VITALS: BP 104/64
[2021-01-09] MEDS: MELATONIN 5 MG TABLET PO SCH (20:34)
[2021-01-10 00:19] VITALS: BP 102/64
[2021-01-10 01:50] VITALS: BP 110/71
[2021-01-10] MEDS: ACETAMINOPHEN 325 MG TABLET PO PRN ×2 (01:53→09:23)
[2021-01-10 08:06] VITALS: BP 128/70
[2021-01-10] MEDS: OMEGA-3/DHA/EPA/FISH OIL 1,000 MG CAPSULE PO SCH (08:11)
[2021-01-10] MEDS: FLUoxetine HCL 20 MG CAPSULE PO SCH (08:11)
[2021-01-10] MEDS: MULTIVITAMINS WITH MINERALS, THERAPEUTIC TABLET PO SCH (08:11)
[2021-01-10] MEDS: NICOTINE 21 MG/24 HOUR PATCH TD SCH (08:12)
[2021-01-10] MEDS: CloZAPine 100 MG TABLET PO SCH ×2 (08:12→20:39)
[2021-01-10] MEDS: MUPIROCIN CALCIUM 2% 15 GM CREAM TP SCH ×2 (08:15→16:36)
[2021-01-10] MEDS: TRIAMCINOLONE 0.025% 15 GM OINTMENT TP SCH ×2 (08:15→16:36)
[2021-01-10 08:19] LABS: BASOPHILS % (AUTO) 0.8 % (0.0-2.0); EOSINOPHILS % (AUTO) 4.2 % (1.0-6.0); HEMATOCRIT 37.3 % (41-53); HEMOGLOBIN 12.4 g/dL (13.5-17.5); LYMPHOCYTES # (AUTO) 0.9 K/uL (1.0-4.8); LYMPHOCYTES % (AUTO) 8.4 % (22.0-44.0); MEAN CORPUSCULAR HGB CONC 33.1 G/dL (31.0-37.0); MEAN CORPUSCULAR VOLUME 94 fL (80-100); MONOCYTES # (AUTO) 0.6 K/uL (0.1-1.0); MONOCYTES % (AUTO) 5.7 % (2.0-9.0); NEUTROPHILS % (AUTO) 80.9 % (40.0-70.0); PLATELET COUNT (AUTO) 381 K/uL (150-450); RED BLOOD CELL COUNT(AUTO) 3.98 MIL/uL (4.50-5.90); RED CELL DISTRIBUTION WIDTH 17.1 % (11.5-14.5)
[2021-01-10] MEDS: GABAPENTIN 300 MG CAPSULE PO PRN (09:23)
[2021-01-10] MEDS ORDERED: CLOZ100T31 PO ×2 (14:50)
[2021-01-10] MEDS ORDERED: OMEG-135 PO (14:50)
[2021-01-10] MEDS ORDERED: FLUO-191 PO (14:50)
[2021-01-10] MEDS ORDERED: MELA5TAB3 PO (14:50)
[2021-01-10] MEDS ORDERED: NALT50TA PO (14:52)
[2021-01-10 16:06] VITALS: BP 117/62
[2021-01-10] MEDS ORDERED: TRIAMCINOLONE 0.025% 15 GM OINTMENT TP PRN (16:45)
[2021-01-10] MEDS ORDERED: MUPIROCIN CALCIUM 2% 15 GM CREAM TP PRN (16:45)
[2021-01-10] MEDS: MELATONIN 5 MG TABLET PO SCH (20:38)
[2021-01-11 05:13] VITALS: BP 104/55
[2021-01-11 06:50] VITALS: BP 117/83
[2021-01-11] MEDS: ACETAMINOPHEN 325 MG TABLET PO PRN (06:58)
[2021-01-11 08:19] VITALS: BP 114/60
[2021-01-11] MEDS: MULTIVITAMINS WITH MINERALS, THERAPEUTIC TABLET PO SCH (08:56)
[2021-01-11] MEDS: OMEGA-3/DHA/EPA/FISH OIL 1,000 MG CAPSULE PO SCH (08:56)
[2021-01-11] MEDS: CloZAPine 100 MG TABLET PO SCH ×2 (08:56→20:10)
[2021-01-11] MEDS: FLUoxetine HCL 20 MG CAPSULE PO SCH (08:57)
[2021-01-11] MEDS: NICOTINE 21 MG/24 HOUR PATCH TD SCH (08:57)
[2021-01-11 16:23] VITALS: BP 121/68
[2021-01-11] MEDS: MELATONIN 5 MG TABLET PO SCH (20:10)
[2021-01-12 05:40] VITALS: BP 118/71
[2021-01-12 08:00] LABS: HEMATOCRIT 36.2 % (41-53); HEMOGLOBIN 12.2 g/dL (13.5-17.5); MEAN CORPUSCULAR HEMOGLOBIN 31.3 pg (26.0-34.0); MEAN CORPUSCULAR HGB CONC 33.8 G/dL (31.0-37.0); MEAN CORPUSCULAR VOLUME 93 fL (80-100); PLATELET COUNT (AUTO) 473 K/uL (150-450); RED BLOOD CELL COUNT(AUTO) 3.91 MIL/uL (4.50-5.90); RED CELL DISTRIBUTION WIDTH 16.9 % (11.5-14.5)
[2021-01-12 08:06] LABS: COVID AG,FIA SOURCE NASOPHARYNGEAL
[2021-01-12 08:07] VITALS: BP 110/72
[2021-01-12 08:10] LABS: ANION GAP 10 mmol/L (8-16); CALCIUM, TOTAL 9.1 mg/dL (8.8-10.5); CARBON DIOXIDE 26 mmol/L (22-29); CHLORIDE 105 mmol/L (98-107); CREATININE 0.99 mg/dL (0.60-1.30); GLOMERULAR FILTR. RATE CALC > 60 mL/min (>60); GLUCOSE,RANDOM 94 mg/dL (70-110); PHOSPHORUS 2.9 mg/dL (2.5-4.9); POTASSIUM 4.4 mmol/L (3.5-5.1); SODIUM SERUM 141 mmol/L (136-145); UREA NITROGEN, BLOOD 25 mg/dL (7-18)
[2021-01-12] MEDS: MULTIVITAMINS WITH MINERALS, THERAPEUTIC TABLET PO SCH (08:13)
[2021-01-12] MEDS: CloZAPine 100 MG TABLET PO SCH ×2 (08:13→20:09)
[2021-01-12] MEDS: NICOTINE 21 MG/24 HOUR PATCH TD SCH (08:13)
[2021-01-12] MEDS: FLUoxetine HCL 20 MG CAPSULE PO SCH (08:13)
[2021-01-12] MEDS: OMEGA-3/DHA/EPA/FISH OIL 1,000 MG CAPSULE PO SCH (08:13)
[2021-01-12 08:36] LABS: BAND NEUTROPHILS % (MANUAL) 2 % (0-5); EOSINOPHILS % (MANUAL) 6 % (1-6); LYMPHOCYTES % (MANUAL) 16 % (22-44); MONOCYTES % (MANUAL) 8 % (2-9); SEGMENTED NEUTROPHILS % 68 % (40-70)
[2021-01-12] MEDS: ACETAMINOPHEN 325 MG TABLET PO PRN (13:32)
[2021-01-12 16:12] VITALS: BP 135/71
[2021-01-12] MEDS: MELATONIN 5 MG TABLET PO SCH (20:09)
[2021-01-13 04:20] VITALS: BP 122/78
[2021-01-13 08:08] VITALS: BP 127/75
[2021-01-13] MEDS: CloZAPine 100 MG TABLET PO SCH ×2 (08:48→20:09)
[2021-01-13] MEDS: GABAPENTIN 300 MG CAPSULE PO PRN ×2 (08:48→19:51)
[2021-01-13] MEDS: MULTIVITAMINS WITH MINERALS, THERAPEUTIC TABLET PO SCH (08:48)
[2021-01-13] MEDS: OMEGA-3/DHA/EPA/FISH OIL 1,000 MG CAPSULE PO SCH (08:48)
[2021-01-13] MEDS: FLUoxetine HCL 20 MG CAPSULE PO SCH (08:48)
[2021-01-13] MEDS: NICOTINE 21 MG/24 HOUR PATCH TD SCH (08:49)
[2021-01-13 17:01] VITALS: BP 122/69
[2021-01-13] MEDS: MELATONIN 5 MG TABLET PO SCH (20:09)
[2021-01-14 04:25] VITALS: BP 124/76
[2021-01-14 08:09] VITALS: BP 107/62
[2021-01-14] MEDS: NICOTINE 21 MG/24 HOUR PATCH TD SCH (09:08)
[2021-01-14] MEDS: FLUoxetine HCL 20 MG CAPSULE PO SCH (09:08)
[2021-01-14] MEDS: CloZAPine 100 MG TABLET PO SCH (09:08)
[2021-01-14] MEDS: OMEGA-3/DHA/EPA/FISH OIL 1,000 MG CAPSULE PO SCH (09:08)
[2021-01-14] MEDS: MULTIVITAMINS WITH MINERALS, THERAPEUTIC TABLET PO SCH (09:08)
[2021-01-14] MEDS ORDERED: CLOZ100T32 PO ×2 (10:42)
[2021-01-14] MEDS ORDERED: FLUO-191 PO (10:43)
[2021-01-14] MEDS ORDERED: MELA1TAB17 PO (10:44)
[2021-01-14] MEDS ORDERED: OMEG-12 PO (10:46)
== END 2021-01-14 12:15 | disposition home or self-care (01) | DRG 885 ==
LOC: B2X 14:05
PROVIDERS: ADMIT Psychiatry & Neurology Psychiatry; ATTEND Psychiatry & Neurology Psychiatry
DX: F20.0 Paranoid schizophrenia (principal); R45.851 Suicidal ideations; F32.9 Major depressive disorder, single episode, unspecified; I10 Essential (primary) hypertension; M19.90 Unspecified osteoarthritis, unspecified site; Z20.822 Contact with and (suspected) exposure to COVID-19; J44.9 Chronic obstructive pulmonary disease, unspecified; G47.00 Insomnia, unspecified; S61.519A Laceration without foreign body of unspecified wrist, initial encounter; F12.10 Cannabis abuse, uncomplicated; K59.00 Constipation, unspecified; F41.9 Anxiety disorder, unspecified; L01.00 Impetigo, unspecified; F17.200 Nicotine dependence, unspecified, uncomplicated; L40.9 Psoriasis, unspecified; Z88.0 Allergy status to penicillin; Z86.16 Personal history of COVID-19; Z91.81 History of falling; Z88.8 Allergy status to other drugs, medicaments and biological substances; Z71.6 Tobacco abuse counseling; Z71.51 Drug abuse counseling and surveillance of drug abuser; X83.8XXA Intentional self-harm by other specified means, initial encounter; Y93.89 Activity, other specified; Y92.89 Other specified places as the place of occurrence of the external cause; Y99.8 Other external cause status; Z79.899 Other long term (current) drug therapy
CPT/HCPCS: 80159; 80307; 83036; 83540; 83550; 83735; 84100; 84439; 84443; 85007; 86592; 87081; 87426; A9575

== ENCOUNTER 2020-12-28 09:47 | Emergency (ER) | payer MEDICARE, OTHER ==
[~2020-12-28] VITALS: Ht 175.3 cm; Wt 77.3 kg
[2020-12-28 09:56] VITALS: BP 139/89
[2020-12-28] MEDS ORDERED: VANCOMYCIN HCL 1 GM/D5% WATER 200 ML IV ONE (10:30)
[2020-12-28] MEDS ORDERED: ACETAMINOPHEN 500 MG TABLET PO ONE (10:30)
[2020-12-28 10:55] LABS: BASOPHILS % (AUTO) 1.1 % (0.0-2.0); EOSINOPHILS % (AUTO) 2.5 % (1.0-6.0); HEMATOCRIT 42.5 % (41-53); HEMOGLOBIN 14.2 g/dL (13.5-17.5); LYMPHOCYTES # (AUTO) 1.5 K/uL (1.0-4.8); MEAN CORPUSCULAR HEMOGLOBIN 31.5 pg (26.0-34.0); MEAN CORPUSCULAR HGB CONC 33.5 G/dL (31.0-37.0); MEAN CORPUSCULAR VOLUME 94 fL (80-100); MONOCYTES # (AUTO) 1.6 K/uL (0.1-1.0); MONOCYTES % (AUTO) 14.9 % (2.0-9.0); NEUTROPHILS # (AUTO) 7.5 K/uL (1.8-7.7); NEUTROPHILS % (AUTO) 67.5 % (40.0-70.0); PLATELET COUNT (AUTO) 272 K/uL (150-450); RED BLOOD CELL COUNT(AUTO) 4.52 MIL/uL (4.50-5.90); RED CELL DISTRIBUTION WIDTH 16.3 % (11.5-14.5)
[2020-12-28] MEDS ORDERED: LIDOCAINE/PF 1% 2 ML VIAL IM ONE (11:00)
[2020-12-28] MEDS ORDERED: CefTRIAXone SODIUM 1 GM/VIAL IM ONE (11:00)
[2020-12-28 11:04] LABS: ANION GAP 5 mmol/L (8-16); CALCIUM, TOTAL 9.8 mg/dL (8.8-10.5); CARBON DIOXIDE 32 mmol/L (22-29); CHLORIDE 101 mmol/L (98-107); CREATININE 1.13 mg/dL (0.60-1.30); GLOMERULAR FILTR. RATE CALC > 60 mL/min (>60); GLUCOSE,RANDOM 104 mg/dL (70-110); POTASSIUM 4.4 mmol/L (3.5-5.1); SODIUM SERUM 138 mmol/L (136-145); UREA NITROGEN, BLOOD 22 mg/dL (7-18)
[2020-12-28 11:10] LABS: ALANINE AMINOTRANSFERASE 23 U/L (12-78); ALBUMIN 2.8 g/dL (3.4-5.0); ALKALINE PHOSPHATASE 88 U/L (46-116); ASPARTATE AMINOTRANSFERASE 14 U/L (15-37); BILIRUBIN,TOTAL 0.3 mg/dL (0.1-1.0); TOTAL PROTEIN, SERUM 7.6 g/dL (6.4-8.2)
[2020-12-28 11:13] LABS: LACTIC ACID 1.1 mmol/L (0.4-2.0)
[2020-12-28] MEDS ORDERED: HYDROCORTISONE 1% 30 GM CREAM TP ONE (12:15)
== END 2020-12-28 14:36 | disposition home or self-care (01) ==
LOC: EMS 09:47
DX: L03.211 Cellulitis of face (principal); H10.9 Unspecified conjunctivitis; L01.00 Impetigo, unspecified
CPT/HCPCS: 36415; 80053; 83605; 85025; 87040; 96372; 99283; J0696; J3490; J3370